=== PATIENT | male | born 1980 | race Caucasian/White ===

== ENCOUNTER 2019-08-04 22:10 | Emergency (ER) | payer SELFPAY ==
[~2019-08-04] VITALS: Ht 177.8 cm; Wt 90.7 kg
[2019-08-05] MEDS ORDERED: ONDANSETRON PF 4 MG/2 ML VIAL. IV ONE
[2019-08-05] MEDS ORDERED: IV NORMAL SALINE 1000ML BAG 1,000 ML IV SCH
[2019-08-05] MEDS ORDERED: MORPHINE SULFATE 4 MG/ML VIAL. IV ONE
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
[2019-08-05 00:10] LABS: BASO # 0.1 x10^3/uL (0.0-0.2); BASO % 1 % (0-3); EOS # 0.1 x10^3/uL (0.0-0.7); EOS % 2 % (0-3); HEMATOCRIT 35.2 % (39.0-53.0); HEMOGLOBIN 11.8 g/dL (13.0-17.5); LYMPH # 2.8 x10^3/uL (1.0-4.8); LYMPH % 28 % (24-48); MEAN CORPUSCULAR HEMOGLOBIN 27 pg (25-35); MEAN CORPUSCULAR HGB CONC 34 g/dL (31-37); MEAN CORPUSCULAR VOLUME 82 fL (79-100); MONO # 1.3 x10^3/uL (0.0-1.1); MONO % 13 % (0-9); NEUT # 5.7 x10^3/uL (1.8-7.7); NEUT % 57 % (31-73); PLATELET COUNT 406 x10^3/uL (140-400); RED BLOOD COUNT 4.31 x10^6/uL (4.30-5.70); RED CELL DISTRIBUTION WIDTH 15.3 % (11.5-14.5)
[2019-08-05 00:24] LABS: CALCIUM 8.6 mg/dL (8.5-10.1); CREATININE 1.1 mg/dL (0.7-1.3); GFR 74.9
[2019-08-05 00:28] LABS: ALBUMIN 2.6 g/dL (3.4-5.0); ALBUMIN/GLOBULIN RATIO 0.6 (1.0-1.7); TOTAL BILIRUBIN 0.2 mg/dL (0.2-1.0); TOTAL PROTEIN 6.8 g/dL (6.4-8.2)
[2019-08-05] MEDS ORDERED: PIPERACILLIN/TAZOBACTAM 4.5 GM in IV NORMAL SALINE 100ML 100 ML IV ONE (00:30)
[2019-08-05] MEDS ORDERED: IOHEXOL 300 MG/ML 100ML VIAL. IV ONE (00:45)
[2019-08-05] MEDS ORDERED: CONTRAST GIVEN. MC PRN (00:45)
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
[2019-08-05 02:44] VITALS: BP 132/73
[2019-08-05] MEDS ORDERED: SULF1TAB24 PO (02:52)
[2019-08-05] MEDS ORDERED: KETOROLAC 30 MG/ML VIAL. IVP ONE (03:00)
[2019-08-05] MEDS ORDERED: HYDROcodone/APAP 5/325MG 1 TAB TABLET PO ONE (03:00)
[2019-08-05 04:34] LABS: % ATYL 1 % (0-0); % EOS 1 % (0-5); % LYMPHS 28 % (24-48); % METAS 1 % (0-0); % MONOS 12 % (0-10); % SEGS 57 % (35-66); PLT ESTIMATE INCREASED (ADEQUATE)
== END 2019-08-05 03:30 | disposition home or self-care (01) ==
LOC: ER 22:10
DX: R10.32 Left lower quadrant pain (principal); R74.8 Abnormal levels of other serum enzymes; M54.5 Low back pain; R11.0 Nausea; Z90.89 Acquired absence of other organs; Z98.890 Other specified postprocedural states; Z79.899 Other long term (current) drug therapy
CPT/HCPCS: 36415; 74177; 80053; 83605; 83690; 85007; 85025; 96365; 96375; 99285; J1885; J2270; J2405; J2543; J7030; Q9967